=== PATIENT | female | born 1995 | race Caucasian/White ===

== ENCOUNTER 2016-10-08 09:16 | Emergency (ER) | payer OTHER, SELFPAY ==
[2016-10-08] MEDS ORDERED: METOCLOPRAMIDE INJ 10MG/2ML VIAL (J2765) As Ordered ONE (09:52)
[2016-10-08 10:11] LABS: CONTROL LINE HCG INT CTR LINE PRESENT
--- NOTE | 2016-10-08 11:14 | EDDOCDS ---
Nurse's Notes [facility] Name: Perlita Macario Age: 21 yrs Sex: Female : 1995 Arrival Date: 10/08/2016 Time: 09:16 Bed PD Private MD: JOSHUA Hoyos Diagnosis: Nausea and vomiting-likely viral gastroenteritis Presentation: 10/08 09:20 Presenting complaint: Patient states: vomiting since 0600 today. when she moves around [facility] a lot it gets worse. shakey and hot and cold flashes. mid abd started first. no abnormal vaginal bleeding. Adult Sepsis Screening: The patient does not have new or worsening altered mentation. Patient's respiratory rate is less than 22. Systolic blood pressure is greater than 100. Patient has a qSOFA score of 0- Negative Sepsis Screen. Suicide/Homicide risk assessment- the patient denies having any suicidal and/or homicidal ideations and does not present with any other emotional, behavioral or mental health complaints. Status: The patient is a dependent. Transition of care: patient was not received from another setting of care. 09:20 Acuity: CLEMENT Level 3 [facility] 09:20 Method Of Arrival: Walkin/Carried/Asstd [facility] 09:23 Presenting complaint: says she took preg test 2 weeks after her period in aug [facility] and it was negative. pt has preg test with her but cant pee yet. Triage Assessment: 09:21 General: Appears in no apparent distress, Behavior is appropriate for age, cooperative. srm Pain: Pain currently is 4 out of 10 on a pain scale. Pt Declines HIV testing. 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 none - PMHx: none; - PSHx: none; - Social history: Smoking status: Patient uses tobacco products, current every day smoker. No barriers to communication noted, The patient speaks fluent Setswana, Speaks appropriately for age. - Family history: Not pertinent. - : The pt / caregiver states he / she is not on anticoagulants. Home medication list is obtained from the patient. - Exposure Risk Screening:: None identified. Screenin:59 Screening information is obtained from the patient. Fall risk: No risks identified. srm Assistance ADL's: requires no assistance with activities of daily living. Abuse/DV Screen: The patient / caregiver reports he/she is: not in a situation that causes fear, pain or injury. Nutritional screening: No deficits noted. Advance Directives: There is no active DNR order. home support is adequate. Assessment: 09:59 General: Appears in no apparent distress, Behavior is appropriate for age, cooperative, srm vomited small amount after blood draw. Neurological: No deficits noted. Respiratory: Airway is patent Respiratory effort is even, unlabored, Breath sounds are clear bilaterally. GI: Abdomen is non- distended Bowel sounds present X 4 quads. Abd is soft and non tender X 4 quads. Derm: Skin is pale. 11:10 General: Appears in no apparent distress, comfortable, Behavior is appropriate for age, cjh cooperative, first contact with patient to review discharge instructions, patient states she is feeling better and denies further needs. Vital Signs: 09:18 BP 138 / 85; Pulse 88; Resp 16; Temp 97.1(O); Pulse Ox 100% on R/A; Weight 57.61 kg elp (R); Height 5 ft. 3 in. (160.02 cm) (R); Pain 5/10; 11:08 BP 118 / 66; Pulse 98; Resp 16; Temp 97.0; Pulse Ox 100% on R/A; Pain 0/10; jrd 09:18 Body Mass Index 22.50 (57.61 kg, 160.02 cm) [facility] Vitals: 09:18 Log In Time: October 08, 2016 at 09:16. [facility] ED Course: 09:18 Patient visited by Concepcion Nuñez PCA. elp 09:18 Romain [facility] [place] Physician. elp 09:18 Patient moved to Waiting elp 09:19 Patient visited by Concepcion Nuñez PCA. elp 09:20 Patient moved to Pre RCE elp 09:21 Triage Initiated srm 09:22 Patient moved to Triage 2 srm 09:30 [facility] ar2 09:30 Scout Polanco MD is Attending Physician. ar2 09:30 Patient visited by Emery Hawley PA-C. ar2 09:51 HCG,Serum Qualitative Sent. srm 09:56 Patient moved to PD srm 09:59 The patient / caregiver is instructed regarding the plan of care and ED course. srm Accompanied by Significant Other, Patient has correct armband on for positive identification. Placed in gown. Bed in low position. 10:01 Patient visited by Laure Sousa RN. srm 10:09 [facility] Payment Agreement was scanned into [employer] and attached to record. jp5 10:23 Patient visited by Luare Sousa RN. srm 10:59 Romain [facility] [place]erral Physician. ar2 11:09 Patient visited by Maximilian Bose PCA. tucker 11:10 No IV's were initiated during this patient's visit. No procedures done that require [facility] assistance. Administered Medications: 09:56 Drug: Metoclopramide 10 mg [metoclopramide 5 mg/mL injection solution (2 mL)] Route: srm IM; Site: left gluteus; 10:23 Follow up: Response: Nausea is resolved [facility] Order Results: Lab Order: HCG,Serum Qualitative; SPEC'M 10/08/16 09:50 Test: HCG, SERUM QUALITATIVE; Value: NEGATIVE; Range: NEGATIVE; Status: F Outcome: 10:59 Discharge ordered by Provider. ar2 11:10 Discharge Assessment: Patient awake, alert and oriented x 3. No cognitive and/or [facility] functional deficits noted. Patient verbalized understanding of disposition instructions. patient administered narcotics - no. The following High Risk Discharge criteria are identified: None. Discharged to home ambulatory, with significant other. Condition: good Condition: stable Condition: improved. Discharge instructions given to patient, Instructed on discharge instructions, follow up and referral plans. medication usage, Demonstrated understanding of instructions, medications, Pt was receptive of discharge instructions/ teaching. Prescriptions given X 1. No special radiology studies were completed. Property :Personal belongings accompany Pt. 11:13 Patient left the ED. [facility] Signatures: Laure Sousa, RN RN [facility] Emery Hawley, LISSA PAWarren ar2 Cleopatra BritoRN BRANDON [facility] Concepcion Nuñez, Maximilian Mancia, ERIBERTO MacdonaldKeikosue jp5 MTDD
--- NOTE | 2016-10-08 11:14 | EDDOCDS ---
Physician Documentation [facility] Name: Perlita Macario Age: 21 yrs Sex: Female : 1995 Arrival Date: 10/08/2016 Time: 09:16 Bed PD Private MD: JOSHUA Hoyos Disposition: 10/08/16 10:59 Discharged to Home/Self Care. Impression: Nausea and vomiting - likely viral gastroenteritis. - Condition is Stable. - Discharge Instructions: Nausea and Vomiting. - Prescriptions for ZOFRAN ODT 4 mg - dissolve 1 tablet by ORAL route 4 times per day As needed do not chew, do not swallow whole; 10 tablet. - Medication Reconciliation, Local Pharmacy Hours form. - Follow up: JOSHUA Hoyos; When: As needed; Reason: Recheck today's complaints, Continuance of care. Follow up: Emergency Department; When: As needed; Reason: Fever > 102F, Worsening of conditions. - Problem is new. - Symptoms have improved. Historical: - Allergies: no known allergies; - Home Meds: 1. none - PMHx: none; - PSHx: none; - Social history: Smoking status: Patient uses tobacco products, current every day smoker. No barriers to communication noted, The patient speaks fluent South African, Speaks appropriately for age. - Family history: Not pertinent. - : The pt / caregiver states he / she is not on anticoagulants. Home medication list is obtained from the patient. - Exposure Risk Screening:: None identified. 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 3 in. (160.02 cm) (R); Pain 5/10; 11:08 BP 118 / 66; Pulse 98; Resp 16; Temp 97.0; Pulse Ox 100% on R/A; Pain 0/10; jrd 09:18 Body Mass Index 22.50 (57.61 kg, 160.02 cm) elp MDM: 09:42 Metoclopramide 10 mg IM once ordered. ar2 09:42 Fluid Challenge ordered. ar2 09:43 HCG,Serum Qualitative Ordered. EDMS 10:09 [facility] Payment Agreement was scanned into [employer] and attached to record. jp5 10: Financial registration complete. jp5 10:19 HCG,Serum Qualitative Reviewed. ar2 Administered Medications: 09:56 Drug: Metoclopramide 10 mg [metoclopramide 5 mg/mL injection solution (2 mL)] Route: srm IM; Site: left gluteus; 10:23 Follow up: Response: Nausea is resolved srm Signatures: Dispatcher [employer] EDMS Laure Sousa, RN RN [facility] Emery Hawley PA-C PA-Anthony ar2 Cleopatra Brito RN RN [facility] Antwon Macdonald jp5 The chart was reviewed and I authenticate all verbal orders and agree with the evaluation and treatment provided.Attachments: 10: [facility] Payment Agreement jp5 MTDD
--- NOTE | 2016-10-10 12:14 | EDDOCDS ---
Nurse's Notes [facility] Name: Perlita Macario Age: 21 yrs Sex: Female : 1995 Arrival Date: 10/08/2016 Time: 09:16 Bed PD Private MD: JOSHUA Hoyos Diagnosis: Nausea and vomiting-likely viral gastroenteritis Presentation: 10/08 09:20 Presenting complaint: Patient states: vomiting since 0600 today. when she moves around [facility] a lot it gets worse. shakey and hot and cold flashes. mid abd started first. no abnormal vaginal bleeding. Adult Sepsis Screening: The patient does not have new or worsening altered mentation. Patient's respiratory rate is less than 22. Systolic blood pressure is greater than 100. Patient has a qSOFA score of 0- Negative Sepsis Screen. Suicide/Homicide risk assessment- the patient denies having any suicidal and/or homicidal ideations and does not present with any other emotional, behavioral or mental health complaints. Status: The patient is a dependent. Transition of care: patient was not received from another setting of care. 09:20 Acuity: CLEMENT Level 3 [facility] 09:20 Method Of Arrival: Walkin/Carried/Asstd [facility] 09:23 Presenting complaint: says she took preg test 2 weeks after her period in aug [facility] and it was negative. pt has preg test with her but cant pee yet. Triage Assessment: 09:21 General: Appears in no apparent distress, Behavior is appropriate for age, cooperative. srm Pain: Pain currently is 4 out of 10 on a pain scale. Pt Declines HIV testing. 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 none - PMHx: none; - PSHx: none; - Social history: Smoking status: Patient uses tobacco products, current every day smoker. No barriers to communication noted, The patient speaks fluent Moh[place], Speaks appropriately for age. - Family history: Not pertinent. - : The pt / caregiver states he / she is not on anticoagulants. Home medication list is obtained from the patient. - Exposure Risk Screening:: None identified. Screenin:59 Screening information is obtained from the patient. Fall risk: No risks identified. srm Assistance ADL's: requires no assistance with activities of daily living. Abuse/DV Screen: The patient / caregiver reports he/she is: not in a situation that causes fear, pain or injury. Nutritional screening: No deficits noted. Advance Directives: There is no active DNR order. home support is adequate. Assessment: 09:59 General: Appears in no apparent distress, Behavior is appropriate for age, cooperative, srm vomited small amount after blood draw. Neurological: No deficits noted. Respiratory: Airway is patent Respiratory effort is even, unlabored, Breath sounds are clear bilaterally. GI: Abdomen is non- distended Bowel sounds present X 4 quads. Abd is soft and non tender X 4 quads. Derm: Skin is pale. 11:10 General: Appears in no apparent distress, comfortable, Behavior is appropriate for age, cjh cooperative, first contact with patient to review discharge instructions, patient states she is feeling better and denies further needs. Vital Signs: 09:18 BP 138 / 85; Pulse 88; Resp 16; Temp 97.1(O); Pulse Ox 100% on R/A; Weight 57.61 kg elp (R); Height 5 ft. 3 in. (160.02 cm) (R); Pain 5/10; 11:08 BP 118 / 66; Pulse 98; Resp 16; Temp 97.0; Pulse Ox 100% on R/A; Pain 0/10; jrd 09:18 Body Mass Index 22.50 (57.61 kg, 160.02 cm) [facility] Vitals: 09:18 Log In Time: October 08, 2016 at 09:16. [facility] ED Course: 09:18 Patient visited by Concepcion Nuñez PCA. elp 09:18 Romain [facility] is Private Physician. elp 09:18 Patient moved to Waiting elp 09:19 Patient visited by Concepcion Nuñez PCA. elp 09:20 Patient moved to Pre RCE elp 09:21 Triage Initiated srm 09:22 Patient moved to Triage 2 srm 09:30 [facility] ar2 09:30 Scout Polanco MD is Attending Physician. ar2 09:30 Patient visited by Emery Hawley PA-C. ar2 09:51 HCG,Serum Qualitative Sent. srm 09:56 Patient moved to PD srm 09:59 The patient / caregiver is instructed regarding the plan of care and ED course. srm Accompanied by Significant Other, Patient has correct armband on for positive identification. Placed in gown. Bed in low position. 10:01 Patient visited by Laure Sousa RN. [facility] 10:09 [facility] Payment Agreement was scanned into [employer] and attached to record. jp5 10:23 Patient visited by Laure Sousa RN. [facility] 10:59 Romain [facility] is Referral Physician. ar2 11:09 Patient visited by Maximilian Bose PCA. tucker 11:10 No IV's were initiated during this patient's visit. No procedures done that require [facility] assistance. 14:32 T-Sheet-- Draft Copy was scanned into [employer] and attached to record. gb Administered Medications: 09:56 Drug: Metoclopramide 10 mg [metoclopramide 5 mg/mL injection solution (2 mL)] Route: srm IM; Site: left gluteus; 10:23 Follow up: Response: Nausea is resolved [facility] Order Results: Lab Order: HCG,Serum Qualitative; SPEC'M 10/08/16 09:50 Test: HCG, SERUM QUALITATIVE; Value: NEGATIVE; Range: NEGATIVE; Status: F Outcome: 10:59 Discharge ordered by Provider. ar2 11:10 Discharge Assessment: Patient awake, alert and oriented x 3. No cognitive and/or [facility] functional deficits noted. Patient verbalized understanding of disposition instructions. patient administered narcotics - no. The following High Risk Discharge criteria are identified: None. Discharged to home ambulatory, with significant other. Condition: good Condition: stable Condition: improved. Discharge instructions given to patient, Instructed on discharge instructions, follow up and referral plans. medication usage, Demonstrated understanding of instructions, medications, Pt was receptive of discharge instructions/ teaching. Prescriptions given X 1. No special radiology studies were completed. Property :Personal belongings accompany Pt. 11:13 Patient left the ED. [facility] Signatures: Laure Sousa, RN RN [facility] Barby Phipps, Reg Reg Emery Singleton, PA-C PAFadiC ar2 Cleopatra Brito RN RN [facility] Concepcion Nuñez, DIESEL RETROFIT DESIGNER DIESEL RETROFIT DESIGNER elp Maximilian Bose, DIESEL RETROFIT DESIGNER DIESEL RETROFIT DESIGNER Antwon Peguero jp5 Chart Complete MTDD
--- NOTE | 2016-10-10 12:14 | EDDOCDS ---
Physician Documentation [facility] Name: Perlita Macario Age: 21 yrs Sex: Female : 1995 Arrival Date: 10/08/2016 Time: 09:16 Bed PD Private MD: JOSHUA Hoyos Disposition: 10/08/16 10:59 Discharged to Home/Self Care. Impression: Nausea and vomiting - likely viral gastroenteritis. - Condition is Stable. - Discharge Instructions: Nausea and Vomiting. - Prescriptions for ZOFRAN ODT 4 mg - dissolve 1 tablet by ORAL route 4 times per day As needed do not chew, do not swallow whole; 10 tablet. - Medication Reconciliation, Local Pharmacy Hours form. - Follow up: JOSHUA Hoyos; When: As needed; Reason: Recheck today's complaints, Continuance of care. Follow up: Emergency Department; When: As needed; Reason: Fever > 102F, Worsening of conditions. - Problem is new. - Symptoms have improved. Historical: - Allergies: no known allergies; - Home Meds: 1. none - PMHx: none; - PSHx: none; - Social history: Smoking status: Patient uses tobacco products, current every day smoker. No barriers to communication noted, The patient speaks fluent Polish, Speaks appropriately for age. - Family history: Not pertinent. - : The pt / caregiver states he / she is not on anticoagulants. Home medication list is obtained from the patient. - Exposure Risk Screening:: None identified. 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 3 in. (160.02 cm) (R); Pain 5/10; 11:08 BP 118 / 66; Pulse 98; Resp 16; Temp 97.0; Pulse Ox 100% on R/A; Pain 0/10; jrd 09:18 Body Mass Index 22.50 (57.61 kg, 160.02 cm) elp MDM: 09:42 Metoclopramide 10 mg IM once ordered. ar2 09:42 Fluid Challenge ordered. ar2 09:43 HCG,Serum Qualitative Ordered. EDMS 10:09 [facility] Payment Agreement was scanned into [employer] and attached to record. jp5 10:09 Financial registration complete. jp5 10:19 HCG,Serum Qualitative Reviewed. ar2 14:32 T-Sheet-- Draft Copy was scanned into [employer] and attached to record. gb Administered Medications: 09:56 Drug: Metoclopramide 10 mg [metoclopramide 5 mg/mL injection solution (2 mL)] Route: srm IM; Site: left gluteus; 10:23 Follow up: Response: Nausea is resolved srm Signatures: Dispatcher [employer] EDMS Laure Sousa, RN RN srm Barby Phipps, Reg Reg gb Emery Hawley, LISSA PAWarren ar2 Cleopatra Brito,RN RN [facility] Antwon Macdonald jp5 The chart was reviewed and I authenticate all verbal orders and agree with the evaluation and treatment provided.Attachments: 10: [facility] Payment Agreement jp5 14:32 T-Sheet-- Draft Copy gb Chart Complete MTDD
--- NOTE | 2016-10-10 12:14 | EDDOCDS ---
Physician Documentation [facility] Name: Perlita Macario Age: 21 yrs Sex: Female : 1995 Arrival Date: 10/08/2016 Time: 09:16 Bed PD Private MD: JOSHUA Hoyos Disposition: 10/08/16 10:59 Discharged to Home/Self Care. Impression: Nausea and vomiting - likely viral gastroenteritis. - Condition is Stable. - Discharge Instructions: Nausea and Vomiting. - Prescriptions for ZOFRAN ODT 4 mg - dissolve 1 tablet by ORAL route 4 times per day As needed do not chew, do not swallow whole; 10 tablet. - Medication Reconciliation, Local Pharmacy Hours form. - Follow up: JOSHUA Hoyos; When: As needed; Reason: Recheck today's complaints, Continuance of care. Follow up: Emergency Department; When: As needed; Reason: Fever > 102F, Worsening of conditions. - Problem is new. - Symptoms have improved. Historical: - Allergies: no known allergies; - Home Meds: 1. none - PMHx: none; - PSHx: none; - Social history: Smoking status: Patient uses tobacco products, current every day smoker. No barriers to communication noted, The patient speaks fluent Russian, Speaks appropriately for age. - Family history: Not pertinent. - : The pt / caregiver states he / she is not on anticoagulants. Home medication list is obtained from the patient. - Exposure Risk Screening:: None identified. 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 3 in. (160.02 cm) (R); Pain 5/10; 11:08 BP 118 / 66; Pulse 98; Resp 16; Temp 97.0; Pulse Ox 100% on R/A; Pain 0/10; jrd 09:18 Body Mass Index 22.50 (57.61 kg, 160.02 cm) elp MDM: 09:42 Metoclopramide 10 mg IM once ordered. ar2 09:42 Fluid Challenge ordered. ar2 09:43 HCG,Serum Qualitative Ordered. EDMS 10:09 [facility] Payment Agreement was scanned into [employer] and attached to record. jp5 10:09 Financial registration complete. jp5 10:19 HCG,Serum Qualitative Reviewed. ar2 14:32 T-Sheet-- Draft Copy was scanned into [employer] and attached to record. gb Administered Medications: 09:56 Drug: Metoclopramide 10 mg [metoclopramide 5 mg/mL injection solution (2 mL)] Route: srm IM; Site: left gluteus; 10:23 Follow up: Response: Nausea is resolved srm Signatures: Dispatcher [employer] EDMS Laure Sousa, RN RN srm Barby Phipps, Reg Reg gb Emery Hawley, LISSA PAWarren ar2 Cleopatra Brito,RN RN [facility] Antwon Macdonald jp5 The chart was reviewed and I authenticate all verbal orders and agree with the evaluation and treatment provided.Attachments: 10: [facility] Payment Agreement jp5 14:32 T-Sheet-- Draft Copy gb Chart Complete MTDD
== END 2016-10-08 11:13 | disposition home or self-care (01) ==
LOC: M ED 09:16
DX: R11.2 Nausea with vomiting, unspecified (principal); F17.210 Nicotine dependence, cigarettes, uncomplicated
CPT/HCPCS: 84703; 96372; 99283; J2765